=== PATIENT | female | born 1965 | race Caucasian/White ===

== ENCOUNTER 2019-07-12 23:02 | Inpatient (IN) | payer BC ==
[~2019-07-12] VITALS: Ht 162.6 cm; Wt 63.6 kg
[~2019-07-12 23:02] MED LIST: B Complex #11 EACH PO; CIPR500 PO; Hair, Skin & N1 EACH PO; NAPR550 PO; OMEP20ER PO; OXYACE5T PO; Oxazepam10 MG PO; PROM25 PO; Zofran4 MG PO
[2019-07-12 23:25] LABS: BASOPHILS ABSOLUTE AUTO 0.06 K/mm3 (0.00-0.23); BASOPHILS PERCENT AUTO 1 % (0-2); EOSINOPHILS ABSOLUTE AUTO 0.01 K/mm3 (0.00-0.68); EOSINOPHILS PERCENT AUTO 0 % (0-6); Hematocrit 43.3 % (33.0-51.0); Hemoglobin 14.9 g/dL (11.5-16.0); IMMATURE GRAN ABSOLUTE AUTO 0.02 K/mm3 (0.00-0.10); IMMATURE GRAN PERCENT AUTO 0 % (0-1); LYMPHOCYTES ABSOLUTE AUTO 1.89 K/mm3 (0.84-5.20); LYMPHOCYTES PERCENT AUTO 24 % (21-46); MONOCYTES ABSOLUTE AUTO 0.86 K/mm3 (0.16-1.47); MONOCYTES PERCENT AUTO 11 % (4-13); Mean Corpuscular HGB 35.1 pg (26.0-34.0); Mean Corpuscular HGB Conc 34.4 g/dL (31.5-36.5); Mean Corpuscular Volume 102 fL (80-100); Mean Platelet Volume 10.1 fL (9.1-12.4); NEUTROPHILS PERCENT AUTO 64 % (41-73); Platelet Count 166 K/mm3 (150-400); RDW Coefficient Variation 12.6 % (11.7-14.2); RDW Standard Deviation 47.7 fL (35.1-46.3); Red Blood Cell Count 4.25 M/mm3 (3.80-5.20); White Blood Cell Count 7.94 K/mm3 (4.00-11.30)
[2019-07-12 23:44] LABS: Acetaminophen, Random <2.0 ug/mL (10.0-30.0); Alanine Aminotransfer (ALT/SGP 50 U/L (12-78); Albumin, Blood 3.9 g/dL (3.4-5.0); Albumin/Globulin Ratio 1.1 (0.8-1.8); Alk Phos 110 U/L (50-136); Anion Gap 19 mmol/L (6-16); Aspartate Aminotrans (AST/SGOT 112 U/L (12-37); Bilirubin, Total 1.5 mg/dL (0.1-1.0); Blood Urea Nitrogen 4 mg/dL (8-24); Bun/Creatinine Ratio 5.4 (12.0-20.0); CO2, Blood 26 mmol/L (21-32); Calcium, Blood 9.2 mg/dL (8.5-10.1); Chloride, Blood 88 mmol/L (98-108); Creatinine, Blood 0.73 mg/dL (0.40-1.00); Ethanol (Alcohol), Blood, Med <3 mg/dL; Globulin, Blood 3.7 g/dL (2.2-4.0); Glomerular Filtration Rate >60 (60-); Glucose, Blood 191 mg/dL (70-99); Potassium, Blood 2.6 mmol/L (3.5-5.5); Salicylate <1.7 mg/dL (2.8-20.0); Sodium, Blood 133 mmol/L (136-145); Total Protein, Blood 7.6 g/dL (6.4-8.2)
[2019-07-13 00:16] LABS: Source, Urine Catheter
[2019-07-13 00:22] LABS: Appearance, Urine Clear (Clear); Bilirubin, Urine Neg (Neg); Blood, Urine 1+ (Neg); Color, Urine Amber (P-Yellow); Glucose Qualitative, Urine 3+ (Neg); Ketones, Urine 2+ (Neg); Leukocyte Esterase, Urine 1+ (Neg); Nitrite, Urine Neg (Neg); Protein, Urine 3+ (Neg); Specific Gravity, Urine 1.015 (1.003-1.022); Urobilinogen, Urine 1+ (Normal); pH, Urine 6.5 (5.0-8.0)
[2019-07-13 00:28] LABS: Amorphous Light (0-Heavy); Bacteria Mod /hpf; Red Blood Cells, Urine 0-2 /hpf (0-2); Squamous Epithelial Cells Few /hpf (Few)
[2019-07-13 00:29] LABS: Hyaline Casts 25-50 /lpf (0-2)
[2019-07-13 00:34] LABS: U Amphetamine Screen Not Detected; U Barbituate Screen Not Detected; U Benzodiazapine Screen Not Detected; U Buprenorphine Screen Not Detected; U Cannabinoids Screen DETECTED; U Cocaine Screen Not Detected; U Methadone Screen Not Detected; U Methamphetamine Screen Not Detected; U Opiates Screen Not Detected; U Oxycodone Screen Not Detected; U Phencyclidine Screen Not Detected; U Propoxyphene Screen Not Detected
[2019-07-13 01:43] LABS: International Normalized Ratio 0.95; Prothrombin Time Results 10.1 Sec (9.7-11.5)
[2019-07-13] MEDS ORDERED: SERT25 (01:51)
[2019-07-13] MEDS ORDERED: TRAZ50 PO (01:52)
[2019-07-13] MEDS ORDERED: XYZAL5 MG PO (01:52)
--- NOTE | 2019-07-13 03:51 | NUR ---
SEIZURE STARTED HAVING SEIZURE @0340, CALLED CHARGE NURSE CEDRIC Bacon PT NON RESPONSIVE, INVOLUNTARY MUSCLE SPASMS T/O BODY, STARING BLANKLY @WALL, UNABLE TO FOLLOW COMMANDS, PUPILS 6MM. GAVE PT 2MG ATIVAN PER ORDERS. ASSISTED PT TO LAY ON SIDE IN BED. SEIZURE STOPPED @0350. PT ABLE TO RESPOND WHEN NAME CALLED AFTER SEIZURE STOPPED.
[2019-07-13 05:21] LABS: Source, Urine Catheter
[2019-07-13 05:23] LABS: Bilirubin, Urine Neg (Neg); Blood, Urine 2+ (Neg); Glucose Qualitative, Urine 4+ (Neg); Ketones, Urine 3+ (Neg); Leukocyte Esterase, Urine Neg (Neg); Nitrite, Urine Neg (Neg); Protein, Urine 2+ (Neg); Urobilinogen, Urine NORM (Normal)
[2019-07-13 05:28] LABS: Appearance, Urine Clear (Clear); Color, Urine Yellow (P-Yellow)
[2019-07-13 05:29] LABS: Amorphous Light (0-Heavy); Bacteria Few /hpf; Red Blood Cells, Urine 0-2 /hpf (0-2); Squamous Epithelial Cells Few /hpf (Few); White Blood Cells, Urine 0-2 /hpf (0-5)
[2019-07-13 05:46] LABS: Adenovirus Not Detected (NOT DETECT); Bordetella pertussis Not Detected (NOT DETECT); Chlamydophila pneumoniae Not Detected (NOT DETECT); Coronavirus 229E Not Detected (NOT DETECT); Coronavirus HKU1 Not Detected (NOT DETECT); Coronavirus NL63 Not Detected (NOT DETECT); Coronavirus OC43 Not Detected (NOT DETECT); Human Metapneumovirus Not Detected (NOT DETECT); Human Rhinovirus/Enterovirus Not Detected (NOT DETECT); Influenza A Not Detected (NOT DETECT); Influenza A/2009-H1 Not Detected (NOT DETECT); Influenza A/H1 Not Detected (NOT DETECT); Influenza A/H3 Not Detected (NOT DETECT); Influenza B Not Detected (NOT DETECT); Mycoplasma pneumoniae Not Detected (NOT DETECT); Parainfluenza Virus 1 Not Detected (NOT DETECT); Parainfluenza Virus 2 Not Detected (NOT DETECT); Parainfluenza Virus 3 Not Detected (NOT DETECT); Parainfluenza Virus 4 Not Detected (NOT DETECT); Respiratory Syncytial Virus Not Detected (NOT DETECT)
--- NOTE | 2019-07-13 05:51 | NUR ---
LATE ENTRY PT NEW ADMIT TO FLOOR LAST NIGHT AROUND 211. VSS UPON ARRIVAL TO FLOOR. AOX2, ABLE TO STATE PLACE, NAME, MONTH- CONFUSED OF YR, STATES ITS 2003 & WHO THE CURRENT PRESIDENT IS. REPORTS SEEING "BIG SCARY HORSES," DURING ASSESSMENT ASKED IF SHE NORMALLY HAS VISUAL HALLUCINATIONS & STATES "SOMETIMES." PT ASKS "WHERE'S DONALD?" HE STATES SHE'S @HOME W/HER KIDS PT STATES "SHE HAS KIDS?" ABLE TO FOLLOW DIRECTIONS AND ANSWER YES/NO QUESTION, JUST SLOW TO RESPOND. DENIES ANY RECENT ETOH USE, STATES ITS BEEN A COUPLE DAYS. REPORTS DAILY MARIJUANA USE. PT REPORTED FEELING ANXIOUS, IRRITABLE, HAVING A HEADACHE, FEELING NAUSEOUS & I NOTICED TREMORS IN BUE. CIWA SCORED 18. EMESIS 1X, MEDICATED W/ZOFRAN PER ORDERS. AROUND 319 PT BECAME MORE IMPULSIVE, TRYING TO GET OOB, IRRITABLE, UNABLE TO FOLLOW SIMPLE COMMANDS & SPEAKING NONSENSE. NOTIFIED CHARGE NURSE CEDRIC JOHNSON @0340 PT WAS HAVING A SEIZURE. 1ST SEIZURE [id number]. GAVE 2MG IV ATIVAN PER ORDERS. PT NONRESPONSIVE, HAVING SPASTICITY T/O EXTREMITIES, RAPID EYE MOVEMENT & IMPULSIVE FACIAL/ARM/HEAD MOVEMENTS. STARTED MUMBLING WORDS POST SEIZURE & WOULD LOOK TOWARDS VERBAL STIMULI. 2ND SEIZURE @[id number]. GAVE ANOTHER 2MG IV ATIVAN PER ORDERS. CHARGE NURSE CEDRIC JOHNSON NOTIFIED DR MOORE OF CHANGE IN PT CONDITION WHILE I STAYED @BEDSIDE. TELE INFORMED ME @0410 HR WAS 180-190 & HAD DECREASED TO 140-150'S BY 041. SPO2 @87% ON RA DURING SEIZURE, PUT PT ON 2L SUPPLEMENTAL O2- INCREASING SPO2 92%. DR MOORE ORDERED PT TO BE MOVED TO ICU & PLACED ON KEPPRA. GAVE REPORT TO MISBAH- [employer] & TRANSFERED PT @0435.
--- NOTE | 2019-07-13 06:32 | NUR ---
TRANSFER PT TRANSFERED FROM MEDICAL FLOOR TO ICU FOR SEIZURES. ARRIVED AT 0444. TRANSFERED TO BED BY STAFF WITH SLIDER SHEET. PT CONFUSED AND NOT FOLLOWING INSTRUCTIONS. GROSS MOTOR MOVEMENT NOTED TO EXT TIMES 4. LUNGS CLEAR ON 2 LITER O2 VIA NC. IV 20G TO LEFT AC WITH NS AND K RIDER INFUSING. AT BEDSIDE. TEMP 102.4. BLANKET REMOVED. BT+ ABD SOFT AND NONTENDER. INCONT OF URINE. ATTENDS APPLIED. 0456 PT STARTED HAVING SEIZURE LIKE ACTIVITY TO LEFT SIDE OF FACE TWITCHING AND LEFT ARM. MED WITH ATIVAN 2 MG. SECOND IV 20G PLACED TO RIGHT FOREARM. 0507 THIRD IV 20G TO LEFT FOREARM PLACED. 0515 PT HAVING SEIZURE ACTIVITY TO LEFT SIDE OF FACE WITH TWITCHING. EXT FLAT NO MOVEMENT NOTED. MED WITH ATIVAN 2 MG. SPO2 DOWN TO 88% INCREASED FIO2 TO 4 LITERS VIA NC. 0520 CALDERÓN TEMP PROBE PLACED. UA SENT. ICE PACKS APPLED TO BACK OF NECK, UNDERARMS AND TO GROIN. CALL OUT TO DR MOORE. [address] MOORE REGARDING TEMP, SEIZURE ACTIVITY AND HEART RATE. NS 500ML BOLUS STARTED. RECEIVED ORDERS FOR TYLENOL. 0552 TYLENOL GIVEN FL. TO CONFUSED AND PULLING ON SEIZURE PADS. 0615 DR MOORE AT BEDSIDE TALKING WITH . POSSIBLE LP LATER. LABS ORDERED AND IV FLUID INCREASED TO 125 ML/HR.
[2019-07-13 06:54] LABS: Hematocrit 39.9 % (33.0-51.0); Hemoglobin 13.6 g/dL (11.5-16.0); Mean Corpuscular HGB 35.1 pg (26.0-34.0); Mean Corpuscular HGB Conc 34.1 g/dL (31.5-36.5); Mean Corpuscular Volume 103 fL (80-100); Platelet Count 156 K/mm3 (150-400); RDW Coefficient Variation 12.6 % (11.7-14.2); RDW Standard Deviation 47.6 fL (35.1-46.3); Red Blood Cell Count 3.87 M/mm3 (3.80-5.20); White Blood Cell Count 13.38 K/mm3 (4.00-11.30)
[2019-07-13 07:09] LABS: Alanine Aminotransfer (ALT/SGP 45 U/L (12-78); Albumin, Blood 3.4 g/dL (3.4-5.0); Alk Phos 92 U/L (50-136); Anion Gap 10 mmol/L (6-16); Aspartate Aminotrans (AST/SGOT 89 U/L (12-37); Bilirubin, Total 1.4 mg/dL (0.1-1.0); Blood Urea Nitrogen 3 mg/dL (8-24); CO2, Blood 30 mmol/L (21-32); Calcium, Blood 7.8 mg/dL (8.5-10.1); Chloride, Blood 96 mmol/L (98-108); Globulin, Blood 3.3 g/dL (2.2-4.0); Glomerular Filtration Rate >60 (60-); Glucose, Blood 176 mg/dL (70-99); Potassium, Blood 3.6 mmol/L (3.5-5.5); Sodium, Blood 136 mmol/L (136-145); Total Protein, Blood 6.7 g/dL (6.4-8.2)
--- NOTE | 2019-07-13 07:14 | NUR ---
Received report from Poppy GIFFORD. Patient laying in trendelenberg position and is swing LE's in the air trying to get up. She mumbles and does not follow directions or track visually. She is on 4L O2 via NC and sats 94%. She has three 20ga IV's dressing intact and sites WNL's. RFA infusing NS 125 ml/hr and currently Rocephin. LAC flushed and SL'd. LFA infuisng NS TKO and Keppra.She has 18Fr Temp Archuleta and temp 100.9. Rate ST 140-150's and systolic 130's with MAP >65. Skin in good apperance and coccyx slightly red from activity in bed.
--- NOTE | 2019-07-13 09:52 | NUR ---
Patient continues to flail up and down in bed, stating she is getting out of bed. She is unable to state where she is at other than in bed at home. Significant other at bedside. She continues to have word salad and does not follow directions. VSS. She remains in restraits for pulling at lines.
--- NOTE | 2019-07-13 11:15 | NUR ---
Patient placed on cooling blankets regardless of ice packs, Tylenol, Ibprofren, and fan for temp 103.5. Started LR bolus and Dr Quinn consult from Dr Mckeon. Tried Cardizem 10 mg for HR 170 with only 20 beat drop. Increased O2 to 6L via NC with intermitent sat reading trying multiple places.
--- NOTE | 2019-07-13 13:30 | NUR ---
Dr Quinn by and wrote new ordes. Patient slightly less combative post Precedex start. She still does not follow commands and talks in word salads. HR 150's and starting to decrease. bedside and helping with care.
--- NOTE | 2019-07-13 15:30 | NUR ---
Started PICC in ANUM. Pressure dropped prior to PICC and and got line in and started pressors and started Levophed at 5mcg/min and increased to 15mcg/min before results of systolic 72 with MAP of 65. Patient was more somulent and decreased Precedex to 0.7. Family arrived and talked with them and DR Quinn talked about plan. HR 80-90's. She remains 0n 6L O2 and sats mid to upper 90's.
--- NOTE | 2019-07-13 19:00 | NUR ---
Gave report to Dbeorah GIFFORD. Patient on Vasopressin , Levophed 7mcg/min, LR at 125ml/hr, Precedex 0.3 mcg/kg/hr. Systolic 90,HR 90's and remains on 6L O2 via NC and sats 98%. Started to warm her from 95.7 and is currently 96.6. She cooled quickly and had machine off and she continued to cool so needing warming. LP for tomorrow.
--- NOTE | 2019-07-13 19:30 | NUR ---
PATIENT RESTING IN BED OPENING EYES TO VERBAL STIMULI, OCCASIONALLY PULLING ON RESTRAINTS, LINES, AND CORDS. NOT ANSWERING QUESTIONS. BILAT WRIST RESTRAINTS IN PLACE TO PREVENT ACCIDENTAL REMOVAL OF LINES AND MONITORS. PRECEDEX 0.3 MCG TO HELP PATIENT RELAX. LEVOPHED 7MCG AND VASOPRESSIN 0.04 UNITS FOR HYPOTENSION. PATIENTS AT BEDSIDE PROVIDING SUPPORT.
--- NOTE | 2019-07-13 22:45 | NUR ---
PATIENT AWAKE FREQUENTLY ASKING FOR FOOD AND WATER, AND TO GET UP AND GO TO "THE OTHER HOUSE" PATIENT TOLD FREQUENTLY THAT SHE IS IN THE HOSPITAL, PATIENT ASKING WHY AM IN A HOSPITAL EACH TIME. PATIENT CONTINUES TO ATTEMPT TO CLIMB OUT OF BED BY HANGING LEGS OUT OF BED, AND PULLING ON WRIST RESTRAINTS. PRECEDEX TITRATED UP AND NEW ORDER OBTAINED FOR 4 POINT RESTRAINTS TO KEEP PATIENT SAFE FROM FALLING OUT OF BED. DOCTOR DEMARCO INFORMED OF PATIENT BEING AWAKE AND VERBAL AND IMPULSIVE. OK FOR PRECEDEX TO TITRATE TO 1.0 AND ATIVAN PRN ORDER OBTAINED FOR AGITATION. TITRATING LEVOPHED DOWN.
[2019-07-14 04:13] LABS: BASOPHILS ABSOLUTE AUTO 0.02 K/mm3 (0.00-0.23); BASOPHILS PERCENT AUTO 0 % (0-2); EOSINOPHILS PERCENT AUTO 0 % (0-6); Hematocrit 36.7 % (33.0-51.0); Hemoglobin 12.6 g/dL (11.5-16.0); IMMATURE GRAN ABSOLUTE AUTO 0.05 K/mm3 (0.00-0.10); IMMATURE GRAN PERCENT AUTO 0 % (0-1); LYMPHOCYTES ABSOLUTE AUTO 0.69 K/mm3 (0.84-5.20); LYMPHOCYTES PERCENT AUTO 6 % (21-46); MONOCYTES ABSOLUTE AUTO 0.44 K/mm3 (0.16-1.47); MONOCYTES PERCENT AUTO 4 % (4-13); Mean Corpuscular HGB 35.5 pg (26.0-34.0); Mean Corpuscular HGB Conc 34.3 g/dL (31.5-36.5); Mean Corpuscular Volume 103 fL (80-100); Mean Platelet Volume 10.7 fL (9.1-12.4); NEUTROPHILS ABSOLUTE AUTO 10.48 K/mm3 (1.96-9.15); NEUTROPHILS PERCENT AUTO 90 % (41-73); NRBC ABSOLUTE 0.07 K/mm3 (0.00-0.02); NRBC Auto 0.6 /100 WBC (0.0-0.2); Platelet Count 69 K/mm3 (150-400); RDW Coefficient Variation 12.7 % (11.7-14.2); RDW Standard Deviation 48.4 fL (35.1-46.3); Red Blood Cell Count 3.55 M/mm3 (3.80-5.20); White Blood Cell Count 11.68 K/mm3 (4.00-11.30)
[2019-07-14 04:31] LABS: Albumin, Blood 2.5 g/dL (3.4-5.0); Anion Gap 15 mmol/L (6-16); Blood Urea Nitrogen 9 mg/dL (8-24); Bun/Creatinine Ratio 9.6 (12.0-20.0); CO2, Blood 19 mmol/L (21-32); Calcium, Blood 7.1 mg/dL (8.5-10.1); Chloride, Blood 104 mmol/L (98-108); Creatinine, Blood 0.94 mg/dL (0.40-1.00); Glomerular Filtration Rate >60 (60-); Glucose, Blood 127 mg/dL (70-99); Phosphorus, Blood 3.2 mg/dL (2.5-4.9); Potassium, Blood 3.7 mmol/L (3.5-5.5); Sodium, Blood 138 mmol/L (136-145)
--- NOTE | 2019-07-14 07:17 | NUR ---
SUMMARY PATIENT AWAKE AND RESTLESS MOST OF THE NIGHT, CONFUSED CONVERSATION T/O NIGHT. VERY IMPULSIVE AND UNPREDICTABLE. DUE TO PATIENT PULLING AT LINES AND CORDS AND KICKING FEET OUT OF THE BED RISKING A FALL FROM THE BED RESTRAINTS REMAIN TO ALL 4 EXTREMITIES. PATIENT ABLE TO RECOGNIZE HER WITHOUT DIFFICULTY THIS MORNING BUT CONTINUES TO HAVE DIFFICULTY REMEMBERING THAT SHE IS IN THE HOSPITAL AND THAT SHE IS NPO. PRECEDEX HAS BEEN TITRATED UP TO 1.0 MCG/HR. LEVOPHED AND VASOPRESSIN REMAIN OFF, SEE FLOW SHEET. CALDERÓN DRAINING DARK ORANGE URINE. OXYGEN TITRATED DOWN TO 2L/NC.
--- NOTE | 2019-07-14 08:25 | NUR ---
Recieved report from Deborah GIFFORD. Patient is resting quietly and occassionally awakens and has brief clear moments and then goes back into some word salad. She remains on 6L O2 and sats in the upper 90%'s. Pressors ar still omn standby and systolics 140's and HR 70's SR. She has bilateral FA's and dressings intact and sites WNL's and are flushed and SL'd. She has PICC line to [facility] and is infusing LR at 125ml/hr and several Abx piggy backs and Precedex 1.0 mcg/kg/hr. She has 18fr temp dean and 97.6 and sai color urine in scant amounts. She is in 4 point soft limb restraints for protection of patient and staff as she does not always know when she is flailing her limbs.
--- NOTE | 2019-07-14 09:37 | NUR ---
Patient getting more agitated and medicated with ativan 2 mg. Systolic 140's and now 120's post medication. VSS. No other significant changes. She was awake and could recognize family and followed simple dierections. When doing oral care refused several times but convinced her she could get water from swab and agreed. She remains in 4 point soft limb restraints.
--- NOTE | 2019-07-14 11:10 | NUR ---
Echocardiogram completed.
--- NOTE | 2019-07-14 11:30 | NUR ---
Patient has been resting with intermitent awakenings and is able to recognize family. When awakes has brief moments of clarity and then makes several confusing statments. Her systolic has been down in the 120's since earlier medication but is on the rise the more she wakes up. She remains on 6L O2 and sats 96% and up. remains at bedside.Dr Ritter in with family talking radha FARNSWORTH.
--- NOTE | 2019-07-14 12:57 | NUR ---
LP done and patient tolerated well until end of procedure and needed help holding down for 2mg Versed to work. She is currently resting. Systolic 140's and HR 80-90's and sat upper 90's on 6L O2 via NC. at bedside. She remains in 4 point restraints as she is constantly pulling at lines and tubes and kicking her l;egs in the air when intermiently awakening.
[2019-07-14 13:04] LABS: RBC Count, CSF 3 /mm3 (0-0); WBC Count, CSF 1 /mm3 (0-5)
[2019-07-14 13:07] LABS: Appearance, CSF Clear (Clear); Color, CSF No Color (No Color)
[2019-07-14 14:22] LABS: Cryptococcus Neoformans/Gattii Not Detected (NOT DETECT); Enterovirus Not Detected (NOT DETECT); Escherichia Coli K1 Not Detected (NOT DETECT); Haemophilus Influenza Not Detected (NOT DETECT); Herpes Simplex Virus 1 Not Detected (NOT DETECT); Herpes Simplex Virus 2 Not Detected (NOT DETECT); Human Herpesvirus 6 Not Detected (NOT DETECT); Human Parechovirus Not Detected (NOT DETECT); Listeria Monocytogenes Not Detected (NOT DETECT); Neisseria Meningitidis Not Detected (NOT DETECT); Streptococcus Agalactiae Not Detected (NOT DETECT); Streptococcus Pneumoniae Not Detected (NOT DETECT); Varicella Zoster Virus Not Detected (NOT DETECT)
[2019-07-14 14:41] LABS: Vancomycin, Trough 29.2 ug/mL (5.0-10.0)
--- NOTE | 2019-07-14 15:28 | NUR ---
Family has gone and patient has been resting. She awakened when in room and ask a couple questions and after answering them she repeated answer several times and not sure if she realkly understood and then she went back to sleep. She is currently hypertensive and have call out to DR Ritter for meds. HR 80, systolic 170's, sats 98% on 6L O2.
--- NOTE | 2019-07-14 17:53 | NUR ---
Daughter jose rafael bray by and other family and they had a lot a questions and talked with them for about 30 minutes. Prior to there arrival she awoke and asked several questions and was bale to focus for short term and the longer the conversation went she became more confused. REduced O2 to 2L NC and sats 96%, and Precedex to 0.7 mcg/kg/hr and she is still calm with minimal agitation. Called Dr Ritter and tried 2mg Ativan fopr systolic 170 with little change.
--- NOTE | 2019-07-14 20:00 | NUR ---
[place] of Care: Patient sleeping, sedated with Precedex at 0.7mcg/kg/hr. Responds to verbal stimuli. Confused when awake, slightly restless/anxious. Pulls at restraints, attempts to pull at lines, tubes, cords. Able to redirect patient, follows simple commands. Oriented to self and family. PICC line to ANUM patent and intact, infusing Precedex and TKO fluids without difficulty. Archuleta cath patent and intact, draining small amount of dark sai urine. Received orders at shift change per Dr. Ritter for IV Lasix x1 and Nitro paste. IV lasix given, holding Nitro paste at this time r/t concern for hypotension. Urine output slightly increased after Lasix given. Plan to titrate precedex and remove restraints as indicated.
[2019-07-15 04:36] LABS: Hemoglobin 13.9 g/dL (11.5-16.0); Mean Corpuscular HGB 34.5 pg (26.0-34.0); Mean Corpuscular HGB Conc 33.9 g/dL (31.5-36.5); Mean Corpuscular Volume 102 fL (80-100); Mean Platelet Volume 12.4 fL (9.1-12.4); NRBC ABSOLUTE 0.25 K/mm3 (0.00-0.02); NRBC Auto 1.4 /100 WBC (0.0-0.2); Platelet Count 69 K/mm3 (150-400); RDW Coefficient Variation 13.2 % (11.7-14.2); Red Blood Cell Count 4.03 M/mm3 (3.80-5.20); White Blood Cell Count 18.02 K/mm3 (4.00-11.30)
[2019-07-15 04:52] LABS: Albumin, Blood 2.4 g/dL (3.4-5.0); Anion Gap 12 mmol/L (6-16); Blood Urea Nitrogen 26 mg/dL (8-24); CO2, Blood 19 mmol/L (21-32); Calcium, Blood 6.6 mg/dL (8.5-10.1); Chloride, Blood 109 mmol/L (98-108); Creatinine, Blood 1.13 mg/dL (0.40-1.00); Glomerular Filtration Rate 54 (60-); Glucose, Blood 116 mg/dL (70-99); Phosphorus, Blood 4.3 mg/dL (2.5-4.9); Potassium, Blood 4.1 mmol/L (3.5-5.5); Sodium, Blood 140 mmol/L (136-145)
[2019-07-15 05:20] LABS: BAND PERCENT MAN 16 % (0-8); BASOPHILS PERCENT MAN 0 % (0-2); EOSINOPHILS PERCENT MAN 0 % (0-6); LYMPHOCYTES ABSOLUTE MAN 0.18 K/mm3 (0.84-5.20); LYMPHOCYTES PERCENT MAN 1 % (21-46); MONOCYTES ABSOLUTE MAN 0.54 K/mm3 (0.16-1.47); MONOCYTES PERCENT MAN 3 % (4-13); NEUTROPHILS ABSOLUTE MAN 17.29 K/mm3 (1.96-9.15); SEG NEUTROPHILS PERCENT MAN 80 % (41-73); TOTAL CELLS COUNTED 100
--- NOTE | 2019-07-15 06:07 | NUR ---
Shift Summary: Patient slept on/off throughout shift. Precedex gtt decreased from 0.7 mcg/kg/hr to 0.5 mcg/kg/hr throughout shift. Prn Ativan given x2 along with scheduled ativan. Patient remains confused when awake but becoming less restless/agitated and easier to re-direct. Soft restraints x4 changed to soft restraints bilateral wrist this shift, effective to keep patient safe. Continues to occasionally pull at lines, tubes, cords when awake. Archuleta cath patent and intact, 475ml of dark sai urine this shift. PICC line remains patent and intact, infusing without difficulty. Patient's back to room at 0600hr, remains at bedside. Appears calm and comfortable at this time. Will continue to monitor for pain, comfort, safety.
--- NOTE | 2019-07-15 08:25 | NUR ---
ASSUMED CARE RECEIVED REPORT FROM ИРИНА WALL. PT IS AGITATED AND MAKING INAPPRORPIATE STATEMENTS, CONFUSED ABOUT WHERE SHE IS AND THAT SHE NEEDS TO GET UP TO PEE, DESPITE HAVING A CALDERÓN CATHETER. HER CALDERÓN HAS RED URINE IN IT. AT BEDSIDE. DISCUSSED ETOH WITHDRAWES. SHE IS ON 2L NC, SAT'ING 95%. PRECEDEX IS INFUSING AT 0.5MCG/KG/HR. NS TKO. BED IS LOW AND LOCKED. CALL LIGHT WITHIN REACH.
--- NOTE | 2019-07-15 09:03 | NUR ---
DR. BROWNING IN ROOM ASSESSING PATIENT, AND TALKING WITH .
--- NOTE | 2019-07-15 11:51 | NUR ---
DR. RUSHING IN [facility] WITH PT, TALKING WITH REGARDING PLAN OF CARE.
--- NOTE | 2019-07-15 14:29 | NUR ---
UPDATE HAVING A DIFFICULT TIME COMING DOWN ON PRECEDEX. I GAVE THE LIBRIUM, BUT ITS HAVING MINIMAL EFFECTS. SHE ISN'T SUPER AGITATED BUT ANXIOUS AND KEEPS TRYING TO PULL AT THINGS, AND MAKING/DOING CONFUSING, INAPPROPRIATE STATEMENTS AND BEHAVIORS.
--- NOTE | 2019-07-15 18:25 | NUR ---
SHIFT SUMMARY PT REMAINS CONFUSED, MAKING INAPPROPRIATE STATEMENTS, AND DOING ABNORMAL THINGS. HOWEVER, SHE IS ORIENTED TO ALL OF HER FAMILY THAT HAVE VISTED. SHE DIDN'T KNOW THE PRESIDENT, BUT AT ONE POINT DID SAY SHE WAS IN THE HOSPITAL (BUT THAT BELIEF DIDN'T LAST ALL DAY). HER AGITATION WAS VERY MILD ALL DAY. SHE IS SWALLOWING FINE, AND IS NOW ON LIBRIUM SHE HAD 2 DOSES TODAY, AND PRECEDEX IS TITRATED DOWN TO 0.4MCG/KG/HR. GOAL IS TO USE LIBRIUM AND WEAN PRECEDEX PER NAM. SHE IS IN A SINUS RHYTHM, RATE IN THE 70-80'S, SLIGHT ELEVATIONS OF BP WHEN SHES AGITATED/AWAKE. SHE HAD A 16 BEAT RUN OF VTACH, AND HER QTc TODAY WAS 0.49 AND 0.50. UNSURE IF THE RUN OF VT WAS SYMPTOMATIC BECAUSE I WASN'T IN THE ROOM DURING AND THE PATIENT IS TOO CONFUSED TO TELL ME. A MAGNESIUM WAS NORMAL AT 1.9. SHE IS NOW OFF OXYGEN SAT'ING LOW 90'S. NAM WANTS THE GOAL TO BE SPO2>88%. SHE HAD NO BM, AND HAS HAD PLENTY OF URINE, THAT IS A DARK CONNOR/RED COLOR WITH SEDIMENT. RESTRAINTS ARE INTACT, AND SECURED TO BED AND BILATERAL WRISTS. CALDERÓN IS PATENT. BED IS LOW AND LOCKED. CALL LIGHT WITHIN REACH. ORDERED AND IT WAS
--- NOTE | 2019-07-15 19:15 | NUR ---
[place] of Care: Patient alert but remains confused. Oriented to self and family, but confused to time/date, place, and reason for admission. Appears more calm and following directions at this time. Precedex gtt decreased from 0.5 to 0.4 mcg/kg/hr, plan to also given prn Librium as indicated. Bilateral soft wrist restraints in place. Archuleta cath patent and intact, draining dark sai urine. PICC line patent and intact, infusing without difficulty. Patient's at bedside. Will continue to monitor for pain, safety, comfort.
[2019-07-16 04:10] LABS: Hematocrit 37.9 % (33.0-51.0); Mean Corpuscular HGB 34.9 pg (26.0-34.0); Mean Corpuscular HGB Conc 34.3 g/dL (31.5-36.5); Mean Corpuscular Volume 102 fL (80-100); NRBC ABSOLUTE 2.01 K/mm3 (0.00-0.02); NRBC Auto 13.1 /100 WBC (0.0-0.2); Platelet Count 70 K/mm3 (150-400); RDW Coefficient Variation 12.9 % (11.7-14.2); RDW Standard Deviation 47.8 fL (35.1-46.3); Red Blood Cell Count 3.73 M/mm3 (3.80-5.20); White Blood Cell Count 15.29 K/mm3 (4.00-11.30)
[2019-07-16 04:32] LABS: Albumin, Blood 2.1 g/dL (3.4-5.0); Albumin/Globulin Ratio 0.8 (0.8-1.8); Alk Phos 84 U/L (50-136); Anion Gap 9 mmol/L (6-16); Bilirubin, Total 0.7 mg/dL (0.1-1.0); Blood Urea Nitrogen 24 mg/dL (8-24); Bun/Creatinine Ratio 34.1 (12.0-20.0); CO2, Blood 23 mmol/L (21-32); Calcium, Blood 6.9 mg/dL (8.5-10.1); Chloride, Blood 107 mmol/L (98-108); Globulin, Blood 2.6 g/dL (2.2-4.0); Glomerular Filtration Rate >60 (60-); Glucose, Blood 141 mg/dL (70-99); Phosphorus, Blood 2.1 mg/dL (2.5-4.9); Potassium, Blood 3.5 mmol/L (3.5-5.5); Sodium, Blood 139 mmol/L (136-145); Total Protein, Blood 4.7 g/dL (6.4-8.2)
[2019-07-16 04:40] LABS: Alanine Aminotransfer (ALT/SGP 1336 U/L (12-78); Aspartate Aminotrans (AST/SGOT 4996 U/L (12-37)
[2019-07-16 05:28] LABS: BAND PERCENT MAN 14 % (0-8); BASOPHILS PERCENT MAN 0 % (0-2); EOSINOPHILS PERCENT MAN 0 % (0-6); LYMPHOCYTES ABSOLUTE MAN 1.07 K/mm3 (0.84-5.20); LYMPHOCYTES PERCENT MAN 7 % (21-46); MONOCYTES PERCENT MAN 2 % (4-13); NEUTROPHILS ABSOLUTE MAN 13.91 K/mm3 (1.96-9.15); SEG NEUTROPHILS PERCENT MAN 77 % (41-73); TOTAL CELLS COUNTED 100
--- NOTE | 2019-07-16 06:49 | NUR ---
Shift Summary: Patient slept well throughout shift. Continues to be confused, but continues to be cooperative with staff. Occasionally called out throughout shift. Occasionally attempts to pull at lines/tubes, or get out of bed when awake. Precedex gtt at 0.4-0.5 mcg/kg/hr throughout shift, prn Librium given x2. Archuleta cath remains patent and intact, draining dark sai urine. PICC line remains patent and intact, infusing without difficulty. Patient's back to room/bedside at this time. Will continue to monitor until report to day shift RN.
--- NOTE | 2019-07-16 07:17 | NUR ---
ASSUMED CARE RECIEVED REPORT FROM ИРИНА WALL. PT IS ALERT, ORIENTED TO SELF, LOCATION, AND SORT OF THE SITUATION. MADE THE STATEMENT "SO THE SIZEURES WERE RELATED TO ALCOHOL". SHE IS HAVING TROUBLE WITH MOTOR FUNCTIONS, SPATIAL AWARENESS, TRYING TO BRUSH HER TEETH AND NOT FINDING HER MOUTH AND DROPPING THE TOOTH BRUSH. SHE DENIES PAIN, AND HER VITALS ARE STABLE. SHE IS ON ROOM AIR. PRECEDEX IS AT 0.4MCG/KG/HR. IS AT THE BEDSIDE. BED IS LOW AND LOCKED. CALL LIGHT IS WITHIN REACH.
[2019-07-16 09:11] LABS: International Normalized Ratio 1.26; Prothrombin Time Results 13.1 Sec (9.7-11.5)
--- NOTE | 2019-07-16 09:15 | NUR ---
DR. BROWNING IN ROOM ASSESSING PT. WELL EDUCATING FAMILY. CONFIRMED UPDATED PLAN OF CARE, AND NEW ORDERS.
--- NOTE | 2019-07-16 10:51 | NUR ---
DR. AJ IN ROOM ASSESSING PT, AND EDUCATING FAMILY.
--- NOTE | 2019-07-16 13:55 | NUR ---
DR. CANTRELL IS IN ROOM ASSESSING PT RIGHT NOW.
--- NOTE | 2019-07-16 14:06 | NUR ---
OT IN ROOM EVALUATING/TREATING PT RIGHT NOW.
--- NOTE | 2019-07-16 17:19 | NUR ---
PT LEFT ICU AND IS NOW IN PCU 11. SHE LEFT ALERT AND ORIENTED X 3; SELF LOCATION AND SITUATION. VITALS STABLE. BP SOFT, BUT MAP > 65. CALDERÓN DUMPED AND MEASURED. ALL HER STUFF WAS BROUGHT OVER TO PCU.
--- NOTE | 2019-07-16 18:52 | NUR ---
SHIFT SUMMARY SINCE TRANSFER PATIENT TAKING DINNER WITH SPOUSE ASSISTING. NO SWALLOWING DIFFICULTIES NOTED. VSS. DENIES PAIN OR OTHER C/O. SPOUSE STATES PATIENT CONFUSED SINCE MOVED TO NEW ROOM 'SHE THINKS SHE IS AT HOME.' PATIENT REORIENTED AND DOES STATE WHY SHE IS IN HOSPITAL. COOPERATIVE WITH CARE. NO S/SX WITHDRAWAL AT THIS TIME. CONT TO MONITOR.
[2019-07-17 05:53] LABS: Hematocrit 38.4 % (33.0-51.0); Hemoglobin 13.4 g/dL (11.5-16.0); Mean Corpuscular HGB 35.1 pg (26.0-34.0); Mean Corpuscular HGB Conc 34.9 g/dL (31.5-36.5); Mean Corpuscular Volume 101 fL (80-100); NRBC ABSOLUTE 2.96 K/mm3 (0.00-0.02); NRBC Auto 21.2 /100 WBC (0.0-0.2); Platelet Count 73 K/mm3 (150-400); RDW Coefficient Variation 12.7 % (11.7-14.2); RDW Standard Deviation 45.9 fL (35.1-46.3); Red Blood Cell Count 3.82 M/mm3 (3.80-5.20); White Blood Cell Count 13.96 K/mm3 (4.00-11.30)
[2019-07-17 05:59] LABS: Mean Platelet Volume 13.1 fL (9.1-12.4)
[2019-07-17 06:10] LABS: BAND PERCENT MAN 7 % (0-8); BASOPHILS PERCENT MAN 0 % (0-2); EOSINOPHILS PERCENT MAN 0 % (0-6); LYMPHOCYTES ABSOLUTE MAN 1.53 K/mm3 (0.84-5.20); LYMPHOCYTES PERCENT MAN 11 % (21-46); MONOCYTES ABSOLUTE MAN 0.55 K/mm3 (0.16-1.47); MONOCYTES PERCENT MAN 4 % (4-13); NEUTROPHILS ABSOLUTE MAN 11.86 K/mm3 (1.96-9.15); SEG NEUTROPHILS PERCENT MAN 78 % (41-73); TOTAL CELLS COUNTED 100
[2019-07-17 06:16] LABS: Albumin, Blood 2.3 g/dL (3.4-5.0); Albumin/Globulin Ratio 0.9 (0.8-1.8); Alk Phos 94 U/L (50-136); Anion Gap 8 mmol/L (6-16); Bilirubin, Total 1.2 mg/dL (0.1-1.0); Blood Urea Nitrogen 13 mg/dL (8-24); CO2, Blood 29 mmol/L (21-32); Calcium, Blood 7.3 mg/dL (8.5-10.1); Chloride, Blood 101 mmol/L (98-108); Creatinine, Blood 0.52 mg/dL (0.40-1.00); Globulin, Blood 2.7 g/dL (2.2-4.0); Glomerular Filtration Rate >60 (60-); Glucose, Blood 84 mg/dL (70-99); Magnesium, Blood 1.4 mg/dL (1.6-2.4); Phosphorus, Blood 1.6 mg/dL (2.5-4.9); Potassium, Blood 2.8 mmol/L (3.5-5.5); Sodium, Blood 138 mmol/L (136-145)
[2019-07-17 06:43] LABS: Alanine Aminotransfer (ALT/SGP 1041 U/L (12-78); Aspartate Aminotrans (AST/SGOT 2346 U/L (12-37)
--- NOTE | 2019-07-17 07:00 | NUR ---
SHIFT SUMMARY PT HAS REMAINED ORIENTED TO SELF ONLY THROUGHOUT THE NIGHT. PT IS OCCASIONALLY ORIENTED TO SURROUNDINGS. PT ABLE TO REPORT THAT SHE IS IN THE HOSPITAL, BUT ALSO STATES THAT THE HOSPITAL IS "AT HOME". REORIENTS WELL, BUT DOES REQUIRE FREQUENT REORIENTATION. CIWA SCORE HAS RANGED FROM 9-10 THROUGHOUT THE NIGHT, REPORTING VISUAL HALLUCINATIONS, SYMPTOMS IMPROVED WITH ORDERED MEDICATIONS. HAS NOT REPORTED ANY HALLUCINATIONS THIS AM. NO ATTEMPTS AT SELF AMBULATION. PT HAS BEEN VERY COOPERATIVE WITH CARE AND FOLLOWS DIRECTION WELL. MEDICATED MULTIPLE TIMES FOR GENERALIZED PAIN THAT IS "MOSTLY IN HER LEGS AND ARMS FROM HER SEIZURE". NO OTHER CHANGES NOTED FROM INITIAL ASSESSMENT. WILL CONTINUE TO MONITOR AND REPORT TO ONCOMING SHIFT RN. BED IN LOW POSITION, CALL LIGHT IN REACH, BED ALARM SET FOR SAFETY.
--- NOTE | 2019-07-17 18:01 | NUR ---
SHIFT SUMMARY VS STABLE. O2 SATS REMAIN ABOVE 90% ON RA. HR HAS BEEN SINUS RHYTHM TO SINUS TACH. BP STABLE. PT COMPLAINS OF PAIN IN THE LEGS. ICE APPLIED AND PT MEDICATED NEEDED PER EMAR. PT ALERT AND ORIENTED TO SELF, FOLLOWING DIRECTIONS, AND FAMILY. PT DISORIENTED TO PLACE AND HAVING VISUAL HALLUCINATIONS AT TIMES. PT EASILY REDIRECTED AND REORIENTED. CIWA HAS BEEN LESS THAN 8. FAMILY AT BEDSIDE. WILL CONTINUE TO MONITOR AND REPORT TO ONCOMING RN. CALL LIGHT IN REACH.
--- NOTE | 2019-07-17 22:45 | NUR ---
PROVIDER CONTACTED PT REQUESTING PO PAIN MEDICATION FOR LONGER PAIN RELIEF. DR RAJPUT CONTACTED AND ORDERS RECEIVED FOR NORCO Q8. WILL INPUT ORDERS AND ADMINISTER.
[2019-07-17] MEDS ORDERED: GABA300 PO ×2 (23:33)
[2019-07-17] MEDS ORDERED: Cinnamon500 MG PO (23:34)
[2019-07-17] MEDS ORDERED: ASCO500 PO (23:34)
[2019-07-17] MEDS ORDERED: Aspir 8181 MG PO (23:35)
[2019-07-17] MEDS ORDERED: ATOR80 PO (23:36)
[2019-07-17] MEDS ORDERED: ASPI325 PO (23:36)
[2019-07-17] MEDS ORDERED: PANCREAZE PO (23:38)
[2019-07-17] MEDS ORDERED: Anti-Diarrheal2 MG PO (23:39)
[2019-07-17] MEDS ORDERED: AZO CRANBERRY1 EAC1 PO (23:39)
[2019-07-17] MEDS ORDERED: METO25 PO (23:40)
[2019-07-17] MEDS ORDERED: TRAZ50 PO (23:55)
[2019-07-17] MEDS ORDERED: ZOLOFT25 MG PO (23:56)
[2019-07-17] MEDS ORDERED: LEVOCETIRIZINE D5 MG PO (23:57)
[2019-07-18 04:07] LABS: BASOPHILS ABSOLUTE AUTO 0.08 K/mm3 (0.00-0.23); BASOPHILS PERCENT AUTO 1 % (0-2); EOSINOPHILS ABSOLUTE AUTO 0.09 K/mm3 (0.00-0.68); EOSINOPHILS PERCENT AUTO 1 % (0-6); Hematocrit 37.7 % (33.0-51.0); Hemoglobin 12.9 g/dL (11.5-16.0); IMMATURE GRAN ABSOLUTE AUTO 0.46 K/mm3 (0.00-0.10); IMMATURE GRAN PERCENT AUTO 4 % (0-1); LYMPHOCYTES PERCENT AUTO 17 % (21-46); MONOCYTES ABSOLUTE AUTO 0.45 K/mm3 (0.16-1.47); MONOCYTES PERCENT AUTO 4 % (4-13); Mean Corpuscular HGB 35.1 pg (26.0-34.0); Mean Corpuscular HGB Conc 34.2 g/dL (31.5-36.5); Mean Corpuscular Volume 102 fL (80-100); Mean Platelet Volume 12.9 fL (9.1-12.4); NEUTROPHILS ABSOLUTE AUTO 8.48 K/mm3 (1.96-9.15); NEUTROPHILS PERCENT AUTO 73 % (41-73); NRBC ABSOLUTE 1.31 K/mm3 (0.00-0.02); NRBC Auto 11.3 /100 WBC (0.0-0.2); Platelet Count 90 K/mm3 (150-400); RDW Coefficient Variation 13.3 % (11.7-14.2); RDW Standard Deviation 48.7 fL (35.1-46.3); Red Blood Cell Count 3.68 M/mm3 (3.80-5.20); White Blood Cell Count 11.56 K/mm3 (4.00-11.30)
[2019-07-18 04:30] LABS: Alanine Aminotransfer (ALT/SGP 779 U/L (12-78); Albumin, Blood 2.2 g/dL (3.4-5.0); Albumin/Globulin Ratio 0.8 (0.8-1.8); Alk Phos 90 U/L (50-136); Anion Gap 6 mmol/L (6-16); Bilirubin, Total 1.2 mg/dL (0.1-1.0); Blood Urea Nitrogen 9 mg/dL (8-24); Bun/Creatinine Ratio 21.5 (12.0-20.0); CO2, Blood 31 mmol/L (21-32); Calcium, Blood 7.9 mg/dL (8.5-10.1); Chloride, Blood 102 mmol/L (98-108); Creatinine, Blood 0.42 mg/dL (0.40-1.00); Globulin, Blood 2.7 g/dL (2.2-4.0); Glomerular Filtration Rate >60 (60-); Glucose, Blood 98 mg/dL (70-99); Magnesium, Blood 1.4 mg/dL (1.6-2.4); Phosphorus, Blood 2.7 mg/dL (2.5-4.9); Potassium, Blood 3.4 mmol/L (3.5-5.5); Sodium, Blood 139 mmol/L (136-145); Total Protein, Blood 4.9 g/dL (6.4-8.2)
[2019-07-18 04:40] LABS: Aspartate Aminotrans (AST/SGOT 1285 U/L (12-37)
--- NOTE | 2019-07-18 05:03 | NUR ---
SHIFT SUMMARY PT HAS REMAINED ALERT AND ORIENTED TO SELF, SURROUNDINGS, AND FOLLOWS DIRECTIONS. REMAINS DISORIENTED TO DATE AND DID HAVE ONE EPISODE OF DISORIENTATION UPON WAKING AND ASKING FOR HER ; REORIENTED WELL UPON FULLY WAKING. VSS. MOSLTY PLEASANT AND COOPERATIVE WITH CARE. PT DID BECOME IRRITABLE WITH STAFF AT ONE POINT WHILE ASSESSING NEUROLOGICAL SATUS AND ORIENTATION. PT REPORTING PAIN TO ARMS AND LEGS THROUGHOUT THE NIGHT THAT DECREASED WITH ORDERED MEDICATIONS, COOL THERAPY, AND REPOSITIONING. MEDICATED ONCE FOR NAUSEA THAT DECREASED WITH ORDERED MEDICATION. CALDERÓN REMAINS PATENT AND DRAINING TO GRAVITY. CIWA SCORE HAS REMAINED <8 THROUGHOUT THE NIGHT. NO OTHER CHANGES NOTED FROM INITIAL ASSESSMENT. WILL CONTINUE TO MONITOR AND REPORT TO ONCOMING SHIFT RN. BED IN LOW POSITION, CALL LIGHT IN REACH. BED ALARM SET FOR SAFETY.
[2019-07-18 07:06] LABS: HBSAG SCREEN Negative (Negative); HEP A AB, IGM Negative (Negative); HEP B CORE AB, IGM Negative (Negative); HEP C VIRUS AB <0.1 (0.0-0.9)
--- NOTE | 2019-07-18 17:12 | NUR ---
CATH DAVON: INSTILLED 0.5 ML OF CATH DAVON INTO ALL 3 LUMENS OF PICC AT 1450. ATTEMPTED TO DRAW OUT AT 1550; 1 LUMEN GOLDIE 3 ML BLOOD AND THE OTHER 2 DID NOT DRAW. LEFT CATH DAVON IN FOR ANOTHER HOUR AND ATTEMPTED TO WITHDRAW AT 1650. AFTER STILL BEING UNABLE TO DRAW CATH DAVON OUT OF 2 LUMENS AND ANY BLOOD FROM THE FIRST LUMEN THAT DID DRAW 1 HOUR PRIOR, MATTHEW HERNANDEZ RN IN TO ASSIST. MATTHEW FLUSHED ALL LINES AND ATTEMPTED TO DRAW. MINIMAL AMOUNT OF BLOOD RETURN FROM EACH LUMEN. MATTHEW SUGGESTED TO FLUSH EACH LUMEN IN A PULSATING FASHION TO BREAK UP ANY FIBROGEN THAT MAY BE ON THE TIP OF THE PICC WELL ASK THE DOCTOR FOR A REPEAT CHEST XRAY TO CONFIRM TIP PLACEMENT. NOTIFED BEDSIDE ИРИНА PACE.
--- NOTE | 2019-07-18 17:54 | NUR ---
SHIFT SUMMARY PT ALERT AND ORIENTED. PT CONFUSED AT TIMES, BUT EASILY REORIENTED. VS STABLE. O2 SATS REMAIN ABOVE 90% ON RA. PT COMPLAINS OF PAIN IN HER LEGS. PT UP TO THE CHAIR FOR ALL MEALS WITH 2 PERSON AND FWW. BOTH KNEES ICED THIS SHIFT PER PT REQUEST AND SWELLING. CALDERÓN PATENT AND DRAINING. WILL CONTINUE TO MONITOR AND REPORT TO ONCOMING RN. CALL LIGHT IN REACH.
[2019-07-19 04:06] LABS: BASOPHILS ABSOLUTE AUTO 0.05 K/mm3 (0.00-0.23); BASOPHILS PERCENT AUTO 1 % (0-2); EOSINOPHILS ABSOLUTE AUTO 0.06 K/mm3 (0.00-0.68); EOSINOPHILS PERCENT AUTO 1 % (0-6); Hematocrit 37.2 % (33.0-51.0); Hemoglobin 12.3 g/dL (11.5-16.0); IMMATURE GRAN ABSOLUTE AUTO 0.54 K/mm3 (0.00-0.10); IMMATURE GRAN PERCENT AUTO 6 % (0-1); LYMPHOCYTES ABSOLUTE AUTO 2.26 K/mm3 (0.84-5.20); LYMPHOCYTES PERCENT AUTO 23 % (21-46); MONOCYTES PERCENT AUTO 4 % (4-13); Mean Corpuscular HGB 34.9 pg (26.0-34.0); Mean Corpuscular HGB Conc 33.1 g/dL (31.5-36.5); Mean Platelet Volume 12.9 fL (9.1-12.4); NEUTROPHILS ABSOLUTE AUTO 6.37 K/mm3 (1.96-9.15); NEUTROPHILS PERCENT AUTO 66 % (41-73); NRBC ABSOLUTE 0.27 K/mm3 (0.00-0.02); NRBC Auto 2.8 /100 WBC (0.0-0.2); Platelet Count 102 K/mm3 (150-400); RDW Coefficient Variation 14.4 % (11.7-14.2); RDW Standard Deviation 51.8 fL (35.1-46.3); Red Blood Cell Count 3.52 M/mm3 (3.80-5.20); White Blood Cell Count 9.68 K/mm3 (4.00-11.30)
[2019-07-19 04:15] LABS: Mean Corpuscular Volume 106 fL (80-100)
[2019-07-19 04:21] LABS: Anion Gap 2 mmol/L (6-16); Blood Urea Nitrogen 8 mg/dL (8-24); Bun/Creatinine Ratio 18.9 (12.0-20.0); CO2, Blood 37 mmol/L (21-32); Calcium, Blood 8.3 mg/dL (8.5-10.1); Chloride, Blood 98 mmol/L (98-108); Creatinine, Blood 0.42 mg/dL (0.40-1.00); Glomerular Filtration Rate >60 (60-); Glucose, Blood 83 mg/dL (70-99); Magnesium, Blood 1.3 mg/dL (1.6-2.4); Potassium, Blood 3.8 mmol/L (3.5-5.5); Sodium, Blood 137 mmol/L (136-145)
[2019-07-19 04:27] LABS: BAND PERCENT MAN 3 % (0-8); BASOPHILS PERCENT MAN 0 % (0-2); EOSINOPHILS PERCENT MAN 0 % (0-6); LYMPHOCYTES ABSOLUTE MAN 2.12 K/mm3 (0.84-5.20); LYMPHOCYTES PERCENT MAN 22 % (21-46); METAMYELOCYTE ABSOLUTE MAN 0.09 K/mm3 (0.00-0.00); METAMYELOCYTE PERCENT MAN 1 % (0-0); MONOCYTES ABSOLUTE MAN 0.09 K/mm3 (0.16-1.47); MONOCYTES PERCENT MAN 1 % (4-13); NEUTROPHILS ABSOLUTE MAN 7.35 K/mm3 (1.96-9.15); SEG NEUTROPHILS PERCENT MAN 73 % (41-73); TOTAL CELLS COUNTED 100
--- NOTE | 2019-07-19 06:18 | NUR ---
SHIFT SUMMARY PT HAS REMAINED ALERT AND ORIENTED TO SELF, SURROUNDINGS, AND FOLLOWING DIRECTIONS. PT REMAINS DISORIENTED TO DATE/TIME. VSS. PLEASANT AND COOPERATIVE WITH CARE. PT HAS SLEPT THROUGHOUT MUCH OF THE NIGHT, WAKING EASILY FOR CARE. PT MEDICATED MULTIPLE TIMES FOR PAIN THAT DECREASED WITH ORDERED MEDICATIONS IN ADDITION TO ALTERNATIVE THERAPIES. PT WITH ONE EPISODE THIS AM OF SLIGHT HYPOTENSION UPON WAKING FOR LAB DRAW, PT WAS ASSYMPTOMATIC. UPON WAKING MORE, HYPOTENSION DISSIPATED. PT MEDICATED ONCE FOR ANXIETY LAST NIGHT THAT DECREASED WITH ORDERED MEDICATION. NO OTHER CHANGES NOTED FROM INITIAL ASSESSMENT. WILL CONTINUE TO MONITOR AND REPORT TO ONCOMING SHIFT RN. BED IN LOW POSITION, CALL LIGHT IN REACH. BED ALARM SET FOR SAFETY.
--- NOTE | 2019-07-19 06:20 | NUR ---
PROVIDER CONTACTED PT WITH MAGNESIUM LEVEL OF 1.[address] RUSHING CONTACTED AND ORDERS RECEIVED FOR ONE DOSE OF MAGNESIUM 1 GRAM IVPB. WILL INPUT AND ADMINISTER.
--- NOTE | 2019-07-19 15:59 | NUR ---
SHIFT SUMMARY PT A&OX3, VSS, TELE ST @ 105 BPM, RA. PAIN MANAGED PER EMAR. HINA PO, DENIES N&V. PT/OT WORKED WITH PT; AMB W/2PP MOD ASSIST W/FWW & GB TO CHAIR/BRP/BED, UP TO CHAIR FOR MEALS. CALDERÓN REMOVED AND PT VOIDING. PICC ANUM FLUSHES WELL. PLAN IS FOR SNF DC TODAY OR TOMORROW. WILL REPORT TO ONCOMING NOC RN.
[2019-07-20 04:50] LABS: BASOPHILS ABSOLUTE AUTO 0.07 K/mm3 (0.00-0.23); BASOPHILS PERCENT AUTO 1 % (0-2); EOSINOPHILS ABSOLUTE AUTO 0.07 K/mm3 (0.00-0.68); EOSINOPHILS PERCENT AUTO 1 % (0-6); Hematocrit 40.1 % (33.0-51.0); Hemoglobin 13.3 g/dL (11.5-16.0); IMMATURE GRAN ABSOLUTE AUTO 0.79 K/mm3 (0.00-0.10); IMMATURE GRAN PERCENT AUTO 6 % (0-1); LYMPHOCYTES ABSOLUTE AUTO 2.37 K/mm3 (0.84-5.20); LYMPHOCYTES PERCENT AUTO 19 % (21-46); MONOCYTES ABSOLUTE AUTO 0.59 K/mm3 (0.16-1.47); MONOCYTES PERCENT AUTO 5 % (4-13); Mean Corpuscular HGB 34.5 pg (26.0-34.0); Mean Corpuscular HGB Conc 33.2 g/dL (31.5-36.5); Mean Corpuscular Volume 104 fL (80-100); Mean Platelet Volume 12.1 fL (9.1-12.4); NEUTROPHILS ABSOLUTE AUTO 8.59 K/mm3 (1.96-9.15); NEUTROPHILS PERCENT AUTO 69 % (41-73); NRBC ABSOLUTE 0.07 K/mm3 (0.00-0.02); NRBC Auto 0.6 /100 WBC (0.0-0.2); Platelet Count 128 K/mm3 (150-400); RDW Coefficient Variation 15.3 % (11.7-14.2); RDW Standard Deviation 53.5 fL (35.1-46.3); Red Blood Cell Count 3.85 M/mm3 (3.80-5.20); White Blood Cell Count 12.48 K/mm3 (4.00-11.30)
[2019-07-20 05:07] LABS: Anion Gap 4 mmol/L (6-16); Blood Urea Nitrogen 7 mg/dL (8-24); Bun/Creatinine Ratio 17.9 (12.0-20.0); CO2, Blood 35 mmol/L (21-32); Calcium, Blood 8.7 mg/dL (8.5-10.1); Chloride, Blood 97 mmol/L (98-108); Creatinine, Blood 0.39 mg/dL (0.40-1.00); Glomerular Filtration Rate >60 (60-); Glucose, Blood 77 mg/dL (70-99); Magnesium, Blood 1.6 mg/dL (1.6-2.4); Potassium, Blood 5.1 mmol/L (3.5-5.5); Sodium, Blood 136 mmol/L (136-145)
[2019-07-20 05:25] LABS: BASOPHILS PERCENT MAN 0 % (0-2); EOSINOPHILS PERCENT MAN 0 % (0-6); LYMPHOCYTES ABSOLUTE MAN 2.74 K/mm3 (0.84-5.20); LYMPHOCYTES PERCENT MAN 22 % (21-46); MONOCYTES PERCENT MAN 0 % (4-13); NEUTROPHILS ABSOLUTE MAN 9.73 K/mm3 (1.96-9.15); SEG NEUTROPHILS PERCENT MAN 78 % (41-73); TOTAL CELLS COUNTED 100
--- NOTE | 2019-07-20 06:00 | NUR ---
SHIFT SUMMARY PT HAS REMAINED AOX3 THROUGHOUT SHIFT, ORIENTED TO SELF, SURROUNDINGS, AND FOLLOWING DIRECTIONS- PT REMAINS DISORIENTED TO DATE/TIME, BUT IS AWARE OF WHERE TO FIND INFORMATION ON THE BOARD. VSS. PLEASANT AND COOPERATIVE WITH CARE. PT AMBULATES WITH ONE PERSON ASSIST, FWW, AND GAIT BELT TO THE BATHROOM WITH MINIMAL DIFFICULTY. PT DOES HAVE DIFFICULTY SITTING UPRIGHT WITHOUT LEANING BACKWARD. PT EDUCATED ON UTILIZING CORE MUSCLE STRENGTH FOR SITTING. PT UTILIZING CALL LIGHT MORE FOR ASSISTANCE RATHER THAN ATTEMPTING SELF AMBULATION. MEDICATED ONCE FOR PAIN THAT DECREASED WITH ORDERED MEDICATION. NO OTHER CHANGES NOTED FROM INITIAL ASSESSMENT. WILL CONTINUE TO MONITOR AND REPORT TO ONCOMING SHIFT RN. BED IN LOW POSITION, CALL LIGHT IN REACH. BED ALARM SET FOR SAFETY.
--- NOTE | 2019-07-20 07:45 | NUR ---
BEDSIDE REPORT REC'D. PT LYING IN BED FIRST THING REQUESTED WAS PAIN MEDS FOR "8/10" PAIN. MED NOT DUE UNTIL 0900. PT WAS VISIBLY UPSET AND IMMEDIATELY ANXIOUS/ANGRY. OFFERED HER AN OPTION OF WAITING THE HOUR FOR HER PILL OR REC'IN IV PAIN MED NOW AND WAITING AN EXTRA 2 HRS FOR HER NORCO. PT WAS TOLD 8:00 SHE "WANTS SOMETHING NOW". ASSESSMENT NOTED. VSS. AT BEDSIDE. CALL LIGHT IN REACH.
[2019-07-20] MEDS ORDERED: FOLI1 PO (10:05)
[2019-07-20] MEDS ORDERED: FURO40 PO (10:06)
[2019-07-20] MEDS ORDERED: HYDR1TAB94 PO (10:07)
[2019-07-20] MEDS ORDERED: METO25ER PO (10:08)
[2019-07-20] MEDS ORDERED: LEVE500 PO (10:08)
[2019-07-20] MEDS ORDERED: POTCHL20ER PO (10:08)
[2019-07-20] MEDS ORDERED: B-1100 MG PO (10:09)
--- NOTE | 2019-07-20 13:04 | NUR ---
PT DISCHARGED TO [facility] FOR REHAB D/T WEAKNESS. DISCUSSED ETOH INTAKE AND HER PLANS TO QUIT. SPOUSE ALSO PLANS TO QUIT. DISCUSSED BACKUP PLAN FOR COPING MECHANISM. PT PLANS TO USE MARAJUANA. DISCUSSED REPLACING ONE ADDICTION FOR ANOTHER AND TO EXERCISE MODERATION. TRANSPORTATION HERE TO TAKE PT TO [facility]. REPORT CALLED TO BENNY. NO BM DOCUMENTED IN CHART SINCE 07/13/19. RX IN PACKET FOR NORCO AND ALL OTHER RX SENT YESTERDAY. VSS. NO FURTHER QUESTIONS FROM PT OR SPOUSE.
== END 2019-07-20 12:34 | DRG 871 ==
LOC: ER 23:02 → MEDS 23:03 → ICUE 07-13 04:29 → PCU 07-16 17:00
PROVIDERS: Emergency Medicine; Family Medicine; Internal Medicine; Internal Medicine Critical Care Medicine; ADMIT Internal Medicine
PROC: 009Y3ZX Drainage of Lumbar Spinal Cord, Percutaneous Approach, Diagnostic (ICD-10-PCS; principal; 2019-07-15)
DX: A41.9 Sepsis, unspecified organism (principal); G92 Toxic encephalopathy; J69.0 Pneumonitis due to inhalation of food and vomit; I50.21 Acute systolic (congestive) heart failure; R65.21 Severe sepsis with septic shock; J96.01 Acute respiratory failure with hypoxia; F10.231 Alcohol dependence with withdrawal delirium; R57.9 Shock, unspecified; I42.0 Dilated cardiomyopathy; E87.2 Acidosis; R56.9 Unspecified convulsions; F10.229 Alcohol dependence with intoxication, unspecified; T17.200A Unspecified foreign body in pharynx causing asphyxiation, initial encounter; E87.6 Hypokalemia; E83.42 Hypomagnesemia; I11.0 Hypertensive heart disease with heart failure; D69.6 Thrombocytopenia, unspecified
CPT/HCPCS: 0099U; 36415; 36569; 51701; 51702; 62270; 70450; 71045; 76705; 80048; 80053; 80069; 80074; 80202; 81001; 81025; 82140; 82945; 82977; 83605; 83735; 83880; 84100; 84145; 84157; 85025; 85027; 85610; 86592; 87015; 87040; 87070; 87086; 87102; 87116; 87205; 87206; 87483; 89051; 94660; 95819; 96361; 96365; 96366; 96367; 96372; 96375; 96376; 97110; 97116; 97163; 97166; 97530; 99285-25; A9270-GY; C1751; C8929; G0378; G0480; J0290; J0456; J0696; J1100; J1570; J1644; J1650; J1940; J1953; J2060; J2250; J2405; J2997; J3010; J3370; J3411; J3475; J3480; J7030; J7040; J7050; J7060; J7120; Q9957

== ENCOUNTER → 2019-07-27 | Outpatient (CLI) | payer BC ==
[~2019-07-27] MED LIST changes: +ASCO500 PO; +ASPI325 PO; +ATOR80 PO; +AZO CRANBERRY1 EAC1 PO; +Anti-Diarrheal2 MG PO; +Aspir 8181 MG PO; +B-1100 MG PO; +Cinnamon500 MG PO; +FOLI1 PO; +FURO40 PO; +GABA300 PO; +HYDR1TAB94 PO; +LEVE500 PO; +LEVOCETIRIZINE D5 MG PO; +METO25 PO; +METO25ER PO; +PANCREAZE PO; +POTCHL20ER PO; +SERT25; +TRAZ50 PO; +XYZAL5 MG PO; +ZOLOFT25 MG PO
== END | disposition home or self-care (01) ==
LOC: LAB SHORT 11:08 → LAB SRC 11:08
DX: R35.0 Frequency of micturition (principal)
CPT/HCPCS: 87086

== ENCOUNTER → 2024-06-04 | Outpatient (CLI) | payer BC ==
[2024-06-04 19:19] LABS: Appearance, Urine Clear (Clear); Bilirubin, Urine Neg (Neg); Blood, Urine Neg (Neg); Glucose Qualitative, Urine Neg (Neg); Ketones, Urine Neg (Neg); Leukocyte Esterase, Urine Neg (Neg); Nitrite, Urine Neg (Neg); Protein, Urine Neg (Neg); Specific Gravity, Urine 1.005 (1.003-1.022); Urobilinogen, Urine NORM (Normal)
[2024-06-04 19:25] LABS: Color, Urine Pale Yellow (P-Yellow)
== END ==
LOC: LAB 19:11 → LAB SHORT 19:11
PROVIDERS: Registered Nurse
DX: R30.0 Dysuria (principal)
CPT/HCPCS: 81003

== ENCOUNTER 2024-11-15 13:13 | Day surgery (SDC) | payer OTHER ==
[~2024-11-15] VITALS: Ht 162.6 cm; Wt 61.6 kg
[~2024-11-15 13:13] MED LIST changes: +Atropine Sulfate 0.1 MG/ML 10ML SYR ONE; +Glycopyrrolate 0.2 MG/ML 1MLVIAL ONE; +Lactated Ringer's 1,000 ML IV ONE; +Ondansetron HCl 2 MG / ML 2ML Vial ONE; +ePHEDrine Sulfate 50 MG/ML 1ML Injection ONE; +propofoL 50 ML IV ONE
[2024-11-15] MEDS ORDERED: PRAV20 (13:25)
[2024-11-15] MEDS ORDERED: VALA500 (13:28)
[2024-11-15] MEDS ORDERED: BACL10 (13:28)
[2024-11-15] MEDS ORDERED: GABA300 (13:29)
[2024-11-15] MEDS ORDERED: LISI5 (13:32)
[2024-11-15] MEDS ORDERED: LEVE500 (13:32)
[2024-11-15] MEDS ORDERED: Lactated Ringer's 1,000 ML IV ONE (14:19)
[2024-11-15] MEDS ORDERED: propofoL 50 ML IV ONE (14:59)
--- NOTE | 2024-11-15 16:03 | NUR ---
11/15/24 1603 Pankaj Willard PT LEFT WITHOUT D/C INSTRUCTION'S. PT'S CONTACTED AND STATED HE WOULD RETURN FOR THE INSTRUCTIONS. INSTRUCTIONS LEFT AT INFRASTRUCTURE ENGINEER.
[2024-11-15 16:09] VITALS: BP 123/79
== END 2024-11-15 15:50 | disposition home or self-care (01) ==
LOC: ORSCSDS 13:13
PROVIDERS: Surgery
PROC: 0DBN8ZX Excision of Sigmoid Colon, Via Natural or Artificial Opening Endoscopic, Diagnostic (ICD-10-PCS; principal; 2024-11-15 14:30)
PROC: 0DBK8ZX Excision of Ascending Colon, Via Natural or Artificial Opening Endoscopic, Diagnostic (ICD-10-PCS; principal; 2024-11-15 14:30)
DX: Z12.11 Encounter for screening for malignant neoplasm of colon (principal); D12.2 Benign neoplasm of ascending colon; K63.5 Polyp of colon; Z87.891 Personal history of nicotine dependence; I10 Essential (primary) hypertension; E78.5 Hyperlipidemia, unspecified; F32.A Depression, unspecified; F41.9 Anxiety disorder, unspecified; Z79.899 Other long term (current) drug therapy; G47.33 Obstructive sleep apnea (adult) (pediatric)
CPT/HCPCS: 88305; J0461; J2405; J2704; J7120